=== PATIENT | female | born 1950 | race Caucasian/White ===

== ENCOUNTER 2025-04-18 07:23 | Inpatient (IN) | payer MEDICARE, OTHER, SELFPAY ==
[2025-04-18] VITALS (29 sets, daily range): BP systolic 114–167; BP diastolic 54–93; PULSE 37–51; BMI 27.7; BMI 26.1
--- NOTE | 2025-04-18 04:25 | ED.GENMED ---
History of Present Illness
<Rosamaria Mohamud PA-C - Last Filed: 04/18/25 08:00>
General
Chief Complaint: Chest Problem
Source: patient
Exam Limitations: none
Time Seen by Provider: 04/18/25 04:23
Nursing documentation reviewed up to this point in time: agreed with
History of Present Illness
History of Present Illness:
Note:
CHIEF COMPLAINT(S)
Abdominal pain and concerns related to colonoscopy preparation.
HISTORY OF PRESENT ILLNESS
The patient is a 74-year-old female with a prior history of afib on xarelto, htn, hiatal hernia and anxiety regarding health care expenses, presenting with abdominal pain and burning in the. She began her colonoscopy preparation the previous
evening, taking the prep at 6:00 p.m. to be completed by 8:00 p.m. After completion, she experienced pain severe enough to prevent sleep. The patient reported 'burping a bunch' during the prep and a burning sensation that improved with burping. She
also experienced watery stools. Alongside prep, she ingested Popsicles, which she later discontinued suspecting they contributed to discomfort, and Gatorade, which generally disagrees with her, switching then to water and apple juice. She was
advised by her primary care provider to take potassium supplementations which she has not taken. She denies any chest pain. She denies any shortness of breath. She has a history of coronary disease. Patient also generally feels weak. She
reports that she went to the bathroom.
CHRONIC MEDICAL CONDITIONS SIGNIFICANTLY AFFECTING CARE
Chronic conditions affecting care include a history of a hiatal hernia.
SOCIAL DETERMINANTS OF HEALTH
The patient reported financial stress related to healthcare costs.
PHYSICAL EXAM
- Nursing notes reviewed and vital signs reviewed.
General: Patient is well appearing and in no acute distress; non-toxic
Skin: Warm and dry, no rashes or lesions
Head: Normocephalic, atraumatic
Eyes: Sclera non-icteric. EOMs intact.
Cardiac: Bradycardia, heart rate irregularly irregular, no murmur
Peripheral Vascular: No lower extremity swelling or edema
Pulm: Normal respiratory effort, no wheezes, rales, rhonchi
Abdomen: Mild abdominal tenderness noted to palpation in the epigastrium
Neuro: CN II-XII intact, no focal neurologic deficits.
Psychiatric: Appropriate mood and affect.
EXTERNAL RECORDS REVIEWED
Patient�s recent lab results indicating potassium levels of 3.2 to 3.5 mEq/L.
PLAN
1. Obtain current blood work to assess potassium levels and other relevant metrics.
2. Administer an anti-spasmodic medication to alleviate abdominal pain.
3. If potassium is stable, continue as planned with colonoscopy preparation, otherwise manage hypokalemia accordingly.
4. Coordinate with GI services for follow-up and potentially expedited scope procedure due to persistent reflux history.
5. Advise the patient on dietary modifications and avoidance of irritants like Gatorade.
6. Instruct the patient to follow up with primary care for ongoing management and additional GI review if required.
DIFFERENTIAL DIAGNOSIS
The Differential Diagnosis includes, in no particular order and is not limited to:
- Gastritis
- Peptic Ulcer Disease
- Gastroesophageal Reflux Disease (GERD)
- Irritable Bowel Syndrome (IBS)
- Hiatal Hernia
- Electrolyte Imbalance (specifically hypokalemia)
- Inflammatory Bowel Disease
- Functional Dyspepsia
- Intestinal Obstruction
- Constipation Secondary to Bowel Prep
SUMMARY OF ENCOUNTER
The patient reports abdominal pain following colonoscopy prep, raising concerns due to existing cardiac and GI history. ECG findings suggest potential hypokalemia, prompting urgent lab reassessment.
EMERGENCY TREATMENTS ADMINISTERED
IV fluids, potassium, magnesium
CHART REVIEW
Prior ER physician documentation in [facility] to review
Reviewed prior cardiology notes that patient brought with her
QT noted to be prolonged in the past but not as prolonged as today
ECG
A-fib with rate of 56 with slow ventricular response, prolonged QT QTc 509 ms likely related to hypokalemia
MEDICAL DECISION MAKING
74-year-old female presents the ER today with concerns of generalized weakness and abdominal pain following performing colonoscopy prep. No chest pain or palpitations.
She was noted to be hypokalemic to 3.1 with ECG changes. Her potassium is going to be repleted. Hyponatremia noted to 123 however in light of GI loss, will hold off on 3% at this time will replete with IV fluids. ED attending made aware.
Troponin normal. Patient has no neurologic symptoms at this time. Discussed case with nephrology on-call Dr. Doss.
DIAGNOSIS
Hypokalemia, hyponatremia, generalized weakness
Phy Exam
<Rosamaria Mohamud PA-C - Last Filed: 04/18/25 08:00>
Physical Exam
Physical Exam:
see hpi
Course
<Rosamaria Mohamud PA-C - Last Filed: 04/18/25 08:00>
Orders/Labs/Results
Orders:
Orders
04/18/25 02:22
EKG [Electrocardiogram (*1)] Urgent
Reason for Study: Chest Pain
EKG- Treatment ONCE
04/18/25 05:00
Complete Blood Count/With Diff Urgent
Comprehensive Metabolic Panel Urgent
Magnesium Urgent
Serum Osmolality Urgent
Troponin I Urgent
04/18/25 05:44
Osmolality, Random Urine Urgent
Date Specimen was Collected: 04/18/25
Time Specimen was Collected: 05:43
Urine Sodium Urgent
Date Specimen was Collected: 04/18/25
Time Specimen was Collected: 05:43
Comment: ADD ON
04/18/25 05:48
Add On - Microbiology Urgent
Tests Added?: osmolality
04/18/25 06:15
Magnesium Oxide 400 mg PO NOW STA
Potassium Chloride [KCl] 40 meq 0.9% Sodium Chloride 250 ml [Nss] 250 ml IV NOW
04/18/25 06:28
Add On- LAB Urgent
Tests Added?: Urine sodium
04/18/25 06:30
Potassium Chloride [KCl] 40 meq 0.9% Sodium Chloride 250 ml [Nss] 250 ml IV NOW
04/18/25 06:31
Magnesium Sulfate 1 grams 0.9% Sodium Chloride 100 ml [Nss] 100 ml IV NOW
04/18/25 06:49
Admit/Transfer Patient As Directed
Co-Sign Provider:
Level of Care: Inpatient admission
Assign to:: Telemetry
Physician / Group: Pepe
Diagnosis: Hyponatremia, Hypokalemia, Diarrhea
Reason for Telemetry: Chest Pain syndromes
Date to Stop Telemetry: 04/20/25
Time to Stop Telemetry: 11:00
Reason for Hospitalization: Hyponatremia, Hypokalemia, Diarrhea
Expected length of stay greater than two midnights?: Yes
ELOS- Estimated Length of Stay in days: 2
I certify the patient meets the requirements for IP care: Yes
PRN Pain Medication Management As Directed
May give lesser potent ordered pain med per pt: Yes
preference::
Protocol:: Medication orders for pain may be administered in a
manner that supports deferring to patient preference
when the pt is:
- Requesting an ordered lesser potent pain medication.
Least to most potent pain medications are defined
as: acetaminophen < NSAID < tramadol < opioids
(morphine, oxycodone, hydromorphone).
- Requesting a lesser dose of the same medication IF
ORDERED.
- Requesting a less intrusive route of administration
if both routes are prescribed by the provider (PO <
IV).
04/18/25 06:50
Code Status As Directed
Resuscitation Status: Full Code
04/18/25 08:00
Pantoprazole [Protonix IV] 40 mg IV DAILY
04/20/25 11:00
DC Protocol for Telemetry ONCE
Abnormal Lab Results
04/18/25
05:00
WBC 12.9 H 10^3/uL
(4.8-10.8)
MCH 31.2 H pg
(27.0-31.0)
MCHC 37.4 H g/dL
(33.0-37.0)
Absolute Neuts (auto) 10.1 H 10^3/uL
(1.4-6.5)
Absolute Monos (auto) 0.8 H 10^3/uL
(0.1-0.6)
Neutrophils % 78.5 H %
(42.2-75.2)
Lymphocytes % 13.7 L %
(20.5-51.1)
Sodium 123 L mmol/L
(135-145)
Potassium 3.1 L mmol/L
(3.5-5.1)
Chloride 85 L mmol/L
(98-107)
Glucose 128 H mg/dl
(70-99)
Magnesium 1.5 L mg/dl
(1.6-2.3)
Total Bilirubin 1.6 H mg/dl
(0.2-1.3)
AST 37 H U/L
(14-36)
Albumin 5.1 H g/dl
(3.5-5.0)
04/18/25 05:00
04/18/25 05:00
Vital Signs
Initial and Last Documented VS:
Initial Vital Signs
Temp Pulse Resp BP Pulse Ox
97.5 F 61 18 139/74 100
04/18/25 02:31 04/18/25 02:31 04/18/25 02:31 04/18/25 02:31 04/18/25 02:31
Last Documented Vital Signs
Temp Pulse Resp BP Pulse Ox
97.5 F 51 14 138/65 98
04/18/25 07:23 04/18/25 07:15 04/18/25 07:15 04/18/25 07:14 04/18/25 07:15
<Tabby Payton, DO - Last Filed: 04/18/25 07:41>
Orders/Labs/Results
Orders:
Orders
04/18/25 02:22
EKG [Electrocardiogram (*1)] Urgent
Reason for Study: Chest Pain
EKG- Treatment ONCE
04/18/25 05:00
Complete Blood Count/With Diff Urgent
Comprehensive Metabolic Panel Urgent
Magnesium Urgent
Serum Osmolality Urgent
Troponin I Urgent
04/18/25 05:44
Osmolality, Random Urine Urgent
Date Specimen was Collected: 04/18/25
Time Specimen was Collected: 05:43
Urine Sodium Urgent
Date Specimen was Collected: 04/18/25
Time Specimen was Collected: 05:43
Comment: ADD ON
04/18/25 05:48
Add On - Microbiology Urgent
Tests Added?: osmolality
04/18/25 06:15
Magnesium Oxide 400 mg PO NOW STA
Potassium Chloride [KCl] 40 meq 0.9% Sodium Chloride 250 ml [Nss] 250 ml IV NOW
04/18/25 06:28
Add On- LAB Urgent
Tests Added?: Urine sodium
04/18/25 06:30
Potassium Chloride [KCl] 40 meq 0.9% Sodium Chloride 250 ml [Nss] 250 ml IV NOW
04/18/25 06:31
Magnesium Sulfate 1 grams 0.9% Sodium Chloride 100 ml [Nss] 100 ml IV NOW
04/18/25 06:49
Admit/Transfer Patient As Directed
Co-Sign Provider:
Level of Care: Inpatient admission
Assign to:: Telemetry
Physician / Group: Pepe
Diagnosis: Hyponatremia, Hypokalemia, Diarrhea
Reason for Telemetry: Chest Pain syndromes
Date to Stop Telemetry: 04/20/25
Time to Stop Telemetry: 11:00
Reason for Hospitalization: Hyponatremia, Hypokalemia, Diarrhea
Expected length of stay greater than two midnights?: Yes
ELOS- Estimated Length of Stay in days: 2
I certify the patient meets the requirements for IP care: Yes
PRN Pain Medication Management As Directed
May give lesser potent ordered pain med per pt: Yes
preference::
Protocol:: Medication orders for pain may be administered in a
manner that supports deferring to patient preference
when the pt is:
- Requesting an ordered lesser potent pain medication.
Least to most potent pain medications are defined
as: acetaminophen < NSAID < tramadol < opioids
(morphine, oxycodone, hydromorphone).
- Requesting a lesser dose of the same medication IF
ORDERED.
- Requesting a less intrusive route of administration
if both routes are prescribed by the provider (PO <
IV).
04/18/25 06:50
Code Status As Directed
Resuscitation Status: Full Code
04/18/25 08:00
Pantoprazole [Protonix IV] 40 mg IV DAILY
04/20/25 11:00
DC Protocol for Telemetry ONCE
Abnormal Lab Results
04/18/25
05:00
WBC 12.9 H 10^3/uL
(4.8-10.8)
MCH 31.2 H pg
(27.0-31.0)
MCHC 37.4 H g/dL
(33.0-37.0)
Absolute Neuts (auto) 10.1 H 10^3/uL
(1.4-6.5)
Absolute Monos (auto) 0.8 H 10^3/uL
(0.1-0.6)
Neutrophils % 78.5 H %
(42.2-75.2)
Lymphocytes % 13.7 L %
(20.5-51.1)
Sodium 123 L mmol/L
(135-145)
Potassium 3.1 L mmol/L
(3.5-5.1)
Chloride 85 L mmol/L
(98-107)
Glucose 128 H mg/dl
(70-99)
Magnesium 1.5 L mg/dl
(1.6-2.3)
Total Bilirubin 1.6 H mg/dl
(0.2-1.3)
AST 37 H U/L
(14-36)
Albumin 5.1 H g/dl
(3.5-5.0)
04/18/25 05:00
04/18/25 05:00
Vital Signs
Initial and Last Documented VS:
Initial Vital Signs
Temp Pulse Resp BP Pulse Ox
97.5 F 61 18 139/74 100
04/18/25 02:31 04/18/25 02:31 04/18/25 02:31 04/18/25 02:31 04/18/25 02:31
Last Documented Vital Signs
Temp Pulse Resp BP Pulse Ox
97.5 F 51 14 138/65 98
04/18/25 07:23 04/18/25 07:15 04/18/25 07:15 04/18/25 07:14 04/18/25 07:15
<Rosamaria Mohamud PA-C - Last Filed: 04/18/25 08:00>
*Pulse Oximetry
SaO2: 98
Oxygen Mode of Delivery: Room air
Patient hypoxic: no
*Critical Care Note
Total Time (30-74mins, 75-104mins- exclusive of procedures): Not Applicable
ED Attending Note
<Rosamaria Mohamud PA-C - Last Filed: 04/18/25 08:00>
-
Portions of this chart may have been created with voice recognition software.� Occasional wrong word or��sound alike� substitutions may have occurred due to the inherent limitations of voice recognition software.
<Tabby Payton DO - Last Filed: 04/18/25 07:41>
ED Attending Note
Patient seen and examined by attending physician: Yes
I performed a history and physical exam of patient and discussed management with resident, I reviewed resident's note and agree with documented findings and plan of care.: Yes
ED Attending Note:
74-year-old woman with history of permanent A-fib chronically maintained on Xarelto, hypertension, hiatal hernia presents tonight with left upper quadrant abdominal pain. Currently prepping for colonoscopy tomorrow. She has been passing multiple
loose stools.
She is also had intermittent nausea, dry heaves.
Exam notable for mild left upper quadrant tenderness to palpation.
Labs are notable for moderate hyponatremia of 123. Mild hypokalemia at 3.1 and mild hypomagnesemia of 1.5.
EKG shows A-fib with slow ventricular response of 56. Long QT interval.
Significant hyponatremia, hypokalemia and hypomagnesemia likely related to colonoscopy prep and ensuing diarrhea.
At this point would not recommend continuing with colonoscopy prep as electrolyte abnormalities could certainly worsen with potential for catastrophic arrhythmia.
Recommend initiation of IV normal saline and will admit to hospital service for continued observation and repeat electrolyte analysis.
Case discussed with nephrology. Would not recommend hypertonic saline at this point as hyponatremia likely related to acute volume loss due to diarrhea.
Discharge Plan
Departure
Patient Disposition: Admit
Date of Disposition: 04/18/25
Time of Disposition: 06:17
Admit to: Med/Surg
Presentation/result/management discussed w/ accepting MD/DO: Hospitalist
Condition: Fair
Discharge Problem:
Hyponatremia, Hypokalemia, Abdominal pain
Interventions
Interventions:
*Risk Screen - Suicide Last Done: 04/18/25 02:31
*General Assessment Last Done: 04/18/25 03:09
*Neglect/Abuse Screening Last Done: 04/18/25 03:09
*ED COVID-19 Vaccine History Last Done: 04/18/25 03:09
*ED Influenza Vaccine History Last Done: 04/18/25 03:09
[facility] Fall Risk Assessment Tool Last Done: 04/18/25 03:07
ED- Cardiac Assessment Last Done: 04/18/25 03:07
ED- Pulmonary Assessment Last Done: 04/18/25 03:08
[2025-04-18 05:06] LABS: Hematocrit 39.6 % (37.0-47.0); Hemoglobin 14.8 g/dL (12.0-16.0); Mean Corp Hgb Conc. 37.4 g/dL (33.0-37.0); Mean Corpuscular Volume 83.5 fL (81.0-99.0); Nucleated Red Blood Cells % 0 %; Platelet Count 259 10^3/uL (130-400); Red Cell Dist. Width 13.0 % (11.5-14.5)
[2025-04-18 05:38] LABS: ALT (SGPT) 27 U/L (0-35); AST (SGOT) 37 U/L (14-36); Albumin 5.1 g/dl (3.5-5.0); Alkaline Phosphatase 61 U/L (38-126); Blood Urea Nitrogen 8 mg/dl (7-17); Calcium 10.1 mg/dl (8.4-10.2); Carbon Dioxide 29 mmol/L (22-30); Chloride 85 mmol/L (98-107); Estimated Creatinine Clearance 72 ml/min; Glucose 128 mg/dl (70-99); Magnesium 1.5 mg/dl (1.6-2.3); Potassium 3.1 mmol/L (3.5-5.1); Sodium 123 mmol/L (135-145); Total Protein 7.9 g/dl (6.3-8.2); eGFR > 60.00
[2025-04-18 05:51] LABS: Troponin I 0.019 ng/ml
--- NOTE | 2025-04-18 06:56 | HPS.HSE ---
Family Physician
-
Family Physician: Dena Peoples
Chief Complaint
-
Abd Pain, Nausea, Diarrhea
History of Present Illness
Patient is a 74y F with PMH significant for hypertension and hiatal hernia who presents to ED complaining of abdominal pain, nausea and diarrhea. Patient notes that she was completing a bowel prep yesterday for a planned colonoscopy today with
Dr. Ariana Ashton in [place]. She developed LUQ discomfort in the evening. This persisted through the night. She did of course have multiple loose and liquid stools as a result of the bowel prep. She felt nauseated but denies any emesis.
She began to feel lightheaded and 'shaky' and presented to the ED for further evaluation.
In the ED patient continues to feel nauseated and 'shaky'. She has persistent LUQ / epigastric abdominal discomfort.
Medical History
Past Medical History
Past Medical History: Reports Other
Additional Past Medical History:
Hypertension
Hiatal Hernia / GERD
Esophageal Stricture / Food Impactions
Atrial Fibrillation
Past Surgical History: Reports Other
Additional Past Surgical History:
x 1
Social History
Tobacco: Non-smoker
Alcohol: None
Drug: None
Family History
Family History: Not pertinent
Allergies / Home Medications
Allergies reflects when Allergies were last updated in [employer].
Home Medications with original date entered in [employer]
Allergy/Medication List:
Allergies
Allergy/AdvReac Type Severity Reaction Status Date / Time
adhesive tape Allergy Unknown Verified 04/18/25 02:31
Home Medications
amlodipine 5 mg tablet 5 mg PO DAILY 04/18/25
chlorthalidone 25 mg tablet 25 mg PO DAILY 04/18/25
potassium chloride 10 mEq tablet,extended release 10 meq PO DAILY 04/18/25
rivaroxaban 20 mg tablet (Xarelto) 20 mg PO DAILY 04/18/25
rosuvastatin 5 mg tablet 5 mg PO HS 04/18/25
Review of Systems
-
History Source: Patient
A 12 point ROS was completed and negative except as noted: Yes
Constitutional: Reports Fatigue; Denies Fever or Chills
EENT: Denies Sore Throat
Respiratory: Denies Cough or Trouble Breathing
Cardiac: Denies Chest Pain or Palpitations
Abdomen/GI: Reports Abdominal Pain, Nausea and Diarrhea; Denies Vomiting, Bloody Stools or Black Stools
: Denies Dysuria or Frequency
Musculoskeletal: Denies Edema
Neurological: Reports Dizzy; Denies Headache
Psych: Reports Anxiety; Denies Depression
Physical Exam
Vital Signs
Vital Signs
Temp Pulse Resp BP Pulse Ox
97.5 F 57 17 150/65 100
04/18/25 02:31 04/18/25 06:00 04/18/25 06:00 04/18/25 06:00 04/18/25 06:00
Physical Exam
General: Other (74y F in mild distress due to nausea / pain.)
HEENT: Other (Dry MM. Neck supple.)
Respiratory: Clear; No Wheezes, Rales or Rhonchi
Cardiac: S1/S2, Irregular Rhythm and Bradycardia; No Murmur
GI: Other (Mild epigastric tenderness. Pos BS. )
Musculoskeletal: No Clubbing, No Cyanosis and No Edema
Neuro: AO x 3
Laboratory Results
-
04/18/25 05:00
04/18/25 05:00
Laboratory Results
Total Bilirubin 1.6 mg/dl (0.2-1.3) H 04/18/25 05:00
AST 37 U/L (14-36) H 04/18/25 05:00
ALT 27 U/L (0-35) 04/18/25 05:00
Alkaline Phosphatase 61 U/L (38-126) 04/18/25 05:00
Troponin I 0.019 ng/ml 04/18/25 05:00
Impression/Plan
-
A/P: Patient is a 74y F with PMH significant for hiatal hernia, GERD and A-Fib who presents to ED complaining of abdominal pain, nausea and diarrhea.
Hyponatremia
Hypokalemia
Nausea / Diarrhea
Prolonged QT
- Admit for further evaluation and treatment.
- Suspect diarrhea and electrolyte abnormalities are due to bowel prep / diarrhea + chlorthalidone, etc.
- Patient states that she was directed to take oral potassium as well - but she stopped this last week for unclear reasons.
- IV Magnesium and potassium given in the ED.
- IVF support.
- Repeat BMP at noon. Follow labs / lytes and adjust IVFs as needed.
- Follow for clinical improvement.
- Supportive care with antiemetics - Tigan for now given long QT.
- Monitor on telemetry.
Hiatal Hernia / GERD
LUQ Discomfort
- IV PPI daily.
- Hold on further bowel prep for now.
- Patient states that she was scheduled today for EGD with dilation in addition to her colonoscopy.
- Cancelled due to hospitalization - follow-up with GI as an outpatient.
Atrial Fibrillation - Unknown Type
Bradycardia
- Slow heart rates on now chronotropic meds - likely vagal effect due to abdominal symptoms / nausea / etc.
- Monitor on telemetry as noted above.
- Will continue to hold Xarelto for now (held for colonoscopy) - but resume prior to discharge / once tolerating diet.
Benign Hypertension
- Continue amlodipine with holding parameters.
- Would hold / stop chlorthalidone given electrolyte abnormalities.
DVT Prophylaxis: SCDs
Code Status: Full
[2025-04-18] MEDS: KCL 270 MEQ IV (07:17)
[2025-04-18] MEDS: MAGNESIUM SULFATE 102 GRAMS IV ×2 (08:19→18:17)
[2025-04-18] MEDS: REGLAN 5 MG IV (08:20)
[2025-04-18] MEDS: PROTONIX IV 40 MG IV (08:20)
[2025-04-18] MEDS: NSS (PRESERVATIVE FREE) 10 ML IV (08:21)
[2025-04-18] MEDS: NSS 1000 IV ×2 (09:34→21:23)
[2025-04-18 10:38] LABS: Troponin I 0.015 ng/ml
--- NOTE | 2025-04-18 11:22 | EDCM ---
Reviewed chart and met with pt and her sister bedside in ED. Lives alone, 2 story [facility], no SHELLI, first floor half bath, full flight to second floor bedroom and full bath.
Independent in ADLs, personal care and ambulation at baseline. No assistive devices, no DME in home.
Confirms Rx coverage.
No hx VN or SNF
PCP: Dena Peoples
Pharmacy: [facility]
Anticipate discharge home, CM will continue to follow for all discharge planning needs.
--- NOTE | 2025-04-18 12:44 | W.PN.UPDATE ---
Update Note
Progress Note Update
Nonbillable note. Admitted past midnight
General: no acute distress
HEENT: Other (Dry MM)
Respiratory: Clear; No Wheezes, Rales or Rhonchi
Cardiac: S1/S2, Irregular Rhythm and Bradycardia
GI: Other (Mild epigastric tenderness. Pos BS. )
Musculoskeletal: No Edema
Neuro: AO x 3
Hyponatremia, Hypokalemia, Nausea / Diarrhea likely secondary to bowel prep for colonoscopy
Replete electrolytes aggressively and recheck BMP later today
Prolonged QT
- Suspect diarrhea and electrolyte abnormalities are due to bowel prep / diarrhea + chlorthalidone, etc.
- Patient states that she was directed to take oral potassium as well - but she stopped this last week for unclear reasons.
- IVF support.
- Repeat BMP at noon
- Follow for clinical improvement.
- Supportive care with antiemetics - Tigan for now given long QT.
- Monitor on telemetry
Atrial fibrillation, unknown type
Now with bradycardia which could be secondary to electrolyte disturbances
Consult cardiology
Not on beta-alana
TSH pending
Xarelto was on hold currently in case need any intervention
Hiatal Hernia / GERD
History of Schatzki ring
- IV PPI
- Hold on further bowel prep for now.
Per patient she was scheduled for EGD in addition to colonoscopy 04/18 outpatient. Will see how patient does with p.o. intake and if there is any issue then we will get GI for EGD at least while in the hospital.
- Cancelled due to hospitalization - follow-up with GI as an outpatient.
Benign Hypertension
- Continue amlodipine with holding parameters.
- Would hold / stop chlorthalidone given electrolyte abnormalities.
DVT Prophylaxis: SCDs
Code Status: Full
[2025-04-18] MEDS: NORVASC 5 MG PO (12:46)
[2025-04-18 13:28] LABS: Blood Urea Nitrogen 4 mg/dl (7-17); Calcium 9.5 mg/dl (8.4-10.2); Carbon Dioxide 24 mmol/L (22-30); Chloride 92 mmol/L (98-107); Estimated Creatinine Clearance 72 ml/min; Glucose 114 mg/dl (70-99); Magnesium 1.9 mg/dl (1.6-2.3); Potassium 4.0 mmol/L (3.5-5.1); Sodium 123 mmol/L (135-145); eGFR > 60.00
--- NOTE | 2025-04-18 14:43 | CON.CAR ---
Addendum entered and electronically signed by Ariela Cook MD 04/18/25 16:46:
I saw and evaluated the patient, and I provided the substantive portion of the medical decision making.
I reviewed and agree with the note by NIDA Jaquez and it accurately reflects our care.
I personally performed the medical decision making of the this encounter and my assessment and plan is below:
74-year-old female who follows with Dr. Lin with a history of permanent atrial fibrillation on Xarelto with slow ventricular response, hypertension, hiatal hernia, Schatzki's rings, and dyslipidemia presented as she felt poorly while doing a
colonoscopy prep for a proposed EGD and colonoscopy today that was never completed.. We were called because she was noted to have a heart rate in the 30s at times. She had some upper epigastric pain, feeling bloated and shaky. Of note, initial
labs show significant hyponatremia to 123 and hypokalemia. She had some vomiting on arrival. Currently she still feels a bit off but no chest pain. She has epigastric fullness. Of note, she reports at home she is able to get up and exercise
without issues.
On exam, she has an irregularly irregular rate and rhythm with a normal S1-S2 no murmur rubs gallops were appreciated lungs were clear to auscultation bilaterally abdomen was soft, extremities were warm and well-perfused.
EKG shows atrial fibrillation at a rate of 56 bpm with incomplete right bundle branch block and QTc of 509 ms
Telemetry does not show any prolonged pauses, heart rates in the 30s to 60s while in atrial fibrillation. No evidence of advanced heart block.
Assessment:
Hyponatremia and hypokalemia in the setting of bowel prep, diarrhea, nausea vomiting
Atrial fibrillation with slow ventricular response: Slower response noted in the setting of electrolyte abnormalities and increased vagal tone.
Prolonged QT
Hiatal hernia/Schatzki's ring
Plan:
No clear irreversible bradycardia, currently no indication for pacemaker. Baseline heart rate has been in the 40s to 50s.
Correction of hyponatremia and hypokalemia. Improvement of abdominal symptoms should help.
Keeping K and mag replete will help with QTc C. Avoid further QT prolonging agents.
Will update echo in case indication for pacemaker becomes clear.
Would keep n.p.o. after midnight as we monitor on telemetry in the instance that we should see an indication for pacemaker in the morning.
Family at the bedside. Plan discussed with them.
Will follow.
Original Note:
Consultation
Consultation Request
Date/Time Consultation Requested: 04/18/25 1204
Date/Time Consultation Performed: 04/18/25 1445
Requesting Provider: Dr. Begum
Performing Provider: Chante ALVA for Dr. Cook
Reason for Consultation: bradycardia
Medical History
-
Chief Complaint: abdominal pain
History of Present Illness:
74 y/o female (Patient of Dr. Lin) with hypertension, permanent AFIB on Xarelto, GERD, hiatal hernia, Schatzki ring, and dyslipidemia who was doing a colonoscopy prep. She reports she 'just didn't feel right' and wasn't herself. She recalls
feeling shaky. Abdomen felt bloated and like there was a knot. She vomited as well. She is feeling somewhat improved overall. HR is 30's-50's in AFIB. Significant hyponatremia is noted. Hypokalemia also noted and has been replaced Of note, she had
her cardiology records on her and it looks like her HR was reported in 40's-50's in OP office off AV debby agents. QTC prolonged on EKG, but improved with potassium replacement. She is in no distress at the time of my assessment. Sister in law,
Becky, at bedside.
Past Medical History
Past Medical History: Arrhythmias, HTN and Hypercholesterolemia
Social History
Tobacco: Non-Smoker
Family History
Family History: Reviewed & Not Pertinent
Allergies / Home Medications
Allergy/AdvReac Type Severity Reaction Status Date / Time
adhesive tape Allergy Unknown Verified 04/18/25 02:31
�Medication �Instructions �Recorded �Confirmed �Type
amlodipine 5 mg tablet 5 mg PO DAILY Blood Pressure 04/18/25 04/18/25 History
chlorthalidone 25 mg tablet 25 mg PO DAILY Blood Pressure 04/18/25 04/18/25 History
potassium chloride 10 mEq oral 10 meq PO DAILY Supplement 04/18/25 04/18/25 History
packet
rivaroxaban 20 mg tablet (Xarelto) 20 mg PO QPM Blood Clot 04/18/25 04/18/25 History
Prevention/Tx
rosuvastatin 5 mg tablet 5 mg PO HS High Cholesterol 04/18/25 04/18/25 History
Review of Systems
-
History Source: Patient
All other systems: Negative unless noted (as noted in HPI)
Constitutional: Other (shaky)
Abdomen/GI: Abdominal Pain, Nausea and Vomiting
Physical Exam
Vital Signs
Temp Pulse Resp BP Pulse Ox
97.5 F 46 16 142/65 100
04/18/25 14:00 04/18/25 14:00 04/18/25 14:00 04/18/25 14:00 04/18/25 14:00
Lab Results
04/18/25 05:00
Troponin I 0.015 ng/ml 04/18/25 10:00
Physical Exam
General: Well Developed, Well Nourished and No Apparent Distress
HEENT: Normocephalic and Anicteric
Respiratory: Clear and Non Labored Respirations
Cardiac: Irregular Rhythm
Skin: Warm and Dry
Neuro: AO x 3
Psych: Calm
Impression / Plan
-
Hyponatremia:
-management per primary team
Hypokalemia:
-being replaced; monitor
-diuretic held
Bradycardia:
-AFIB with IC RBBB on EKG, HR 30's-50's on monitor- unclear if symptomatic since other issues as noted; follow telemetry. Assess as other issues are addressed (electrolytes, abdominal issues).
-not on AV debby agents
-TSH WNL
-looks to be chronic from OP chart
-will keep NPO for AM while we monitor telemetry
Prolonged QTC:
-improved with K+ replacement, repeat in AM
Permanent AFIB:
-on Xarelto as OP
-not on AV debby agents as noted
HTN:
-stable
-monitor on CCB
HLD: statin
Data Reviewed
-
EKG: Tracing Personally Visualized and interpreted (AFIB 44 BPM, IC RBBB)
Medical Tests (Nuc Med, Echo etc): Report Reviewed by me (Echo 09/06/24: EF 65%, mild MR, moderate TR, PAP 47 MmmHG)
Labs: Labs Reviewed by me
Old Records: Reviewed (Dr. Lin 03/2025)
[2025-04-18] MEDS: KCL 20 MEQ PO (14:50)
[2025-04-18 16:25] LABS: Troponin I 0.014 ng/ml
[2025-04-18 20:47] LABS: Sodium 127 mmol/L (135-145)
[2025-04-18] MEDS: CRESTOR 5 MG PO (21:24)
[2025-04-18 22:26] LABS: Troponin I < 0.012 ng/ml
[2025-04-19] VITALS (7 sets, daily range): BP systolic 99–170; BP diastolic 51–83; PULSE 47–71; BMI 26.2
--- NOTE | 2025-04-19 00:10 | W.PN.UPDATE ---
Update Note
Progress Note Update
HR 20's-30's for brief seconds Afib
patient asymptomatic
will order labs
other HR 40's-[address] 1[address] oxygen[address]
If bradycardia sustains will give atropine.
NPO for possible pacemaker
Lab results noted
NA 132 will stop the fluids
Patient asymptomatic
[2025-04-19 00:43] LABS: Blood Urea Nitrogen 4 mg/dl (7-17); Calcium 9.2 mg/dl (8.4-10.2); Carbon Dioxide 27 mmol/L (22-30); Chloride 102 mmol/L (98-107); Estimated Creatinine Clearance 61 ml/min; Glucose 94 mg/dl (70-99); Magnesium 2.2 mg/dl (1.6-2.3); Potassium 4.0 mmol/L (3.5-5.1); Sodium 132 mmol/L (135-145); eGFR > 60.00
--- NOTE | 2025-04-19 02:22 | PTCARENOTE ---
Patient HR in the 20s and 30s with 3.4 sec pauses. Vitals stable. Patient asymptomatic. ENVIRONMENTAL RESEARCH SCIENTIST notified. STAT labs ordered and drawn. Labs improved from prior draw. 02 ordered and placed on patient. Continue to monitor. Patient for Echo and possible
pacemaker in am.
[2025-04-19] MEDS: KCL 20 MEQ PO (07:52)
[2025-04-19] MEDS: NORVASC 5 MG PO (07:52)
[2025-04-19] MEDS: NSS (PRESERVATIVE FREE) 10 ML IV (07:53)
[2025-04-19] MEDS: PROTONIX IV 40 MG IV (07:53)
[2025-04-19 08:23] LABS: Hematocrit 38.4 % (37.0-47.0); Hemoglobin 13.9 g/dL (12.0-16.0); Mean Corp Hgb Conc. 36.2 g/dL (33.0-37.0); Mean Corpuscular Volume 89.3 fL (81.0-99.0); Platelet Count 242 10^3/uL (130-400); Red Cell Dist. Width 13.4 % (11.5-14.5)
[2025-04-19 08:49] LABS: Blood Urea Nitrogen 5 mg/dl (7-17); Calcium 9.8 mg/dl (8.4-10.2); Carbon Dioxide 27 mmol/L (22-30); Chloride 104 mmol/L (98-107); Estimated Creatinine Clearance 47 ml/min; Glucose 101 mg/dl (70-99); Potassium 3.8 mmol/L (3.5-5.1); Sodium 137 mmol/L (135-145); eGFR > 60.00
--- NOTE | 2025-04-19 09:35 | W.PN.CD ---
Today's Communication / Plan
-
- Outpatient follow-up with cardiology.
- Echo pending today.
Impression / Plan
-
Hyponatremia:
-management per primary team
Hypokalemia:
-being replaced; monitor
-diuretic held
Bradycardia:
-AFIB with IC RBBB on EKG, HR 30's-50's on monitor- unclear if symptomatic since other issues as noted; follow telemetry. Assess as other issues are addressed (electrolytes, abdominal issues).
-not on AV debby agents
-TSH WNL
- Asymptomatic bradycardia.
- Tolerating lower heart rates without any significant symptoms or hemodynamic compromise for
- Avoid any negative chronotropic agents.
- Plan outpatient observation.
- If patient developed symptoms of bradycardia, he may be candidate for pacemaker.
Prolonged QTC:
-improved with K+ replacement
Permanent AFIB:
-on Xarelto as OP
-not on AV debby agents as noted
HTN:
-stable
-monitor on CCB
HLD: statin
Physical Exam
Vital Signs/Labs
Vital Signs
Temp Pulse Resp BP Pulse Ox
97.8 F 57 18 127/56 98
04/19/25 07:00 04/19/25 07:00 04/19/25 07:00 04/19/25 07:00 04/19/25 07:00
04/18/25 04/19/25 04/20/25
06:59 06:59 06:59
Actual Weight 66.5 kg 62.794 kg
04/19/25 07:59
04/19/25 07:59
Magnesium 2.2 mg/dl (1.6-2.3) 04/19/25 00:07
LAB Results
04/18/25 04/18/25 04/18/25
05:00 10:00 15:46
Troponin I 0.019 0.015 0.014
04/18/25
21:52
Troponin I < 0.012
Physical Exam
Constitutional: No acute distress and Comfortable
EENT: Anicteric and Moist mucous membranes
Cardiovascular: Rhythm & rate is regular, Pedal edema is absent and JVD pressure is normal
Respiratory: Respiratory effort normal, Lungs clear to auscul. and Wheeze Absent
GI: Soft, Distention absent, Normal bowel sounds and Distention present
Neuro/Psych: Alert, Oriented and AO x 3
Data Reviewed
-
Date of Service: April 19, 2025
Medical Decision Making: Reviewed Test Results, Test Interpretation and Review of Case with other Provider
EKG: Tracing Personally Visualized and interpreted
Labs: Labs Reviewed by me
Old Records: Reviewed
--- NOTE | 2025-04-19 13:14 | W.PN.HOSP.TC ---
Today's Communication/Plan
-
monitor vital signs
see plan
Discussed with cardiology Dr. Jimenez. No plan for pacemaker at this time
Ordered IDDS 6 diet due to patient complaining of intermittent dysphagia. Speech evaluation
might need GI eval inpatient
Assessment / Plan
Assessment / Plan
General: no acute distress
HEENT: Other (Dry MM)
Respiratory: Clear; No Wheezes, Rales or Rhonchi
Cardiac: S1/S2, Irregular Rhythm and Bradycardia
GI: Other (Mild epigastric tenderness. Pos BS. )
Musculoskeletal: No Edema
Neuro: AO x 3
Acute Hyponatremia, Hypokalemia, Nausea / Diarrhea likely secondary to bowel prep for colonoscopy
Replete electrolytes aggressively
Prolonged QT
- Suspect diarrhea and electrolyte abnormalities are due to bowel prep / diarrhea + chlorthalidone, etc.
- Patient states that she was directed to take oral potassium as well - but she stopped this last week for unclear reasons.
dc further IVF
- Follow for clinical improvement.
- Monitor on telemetry
Atrial fibrillation, unknown type
Now with bradycardia which could be secondary to electrolyte disturbances and vagal response
overnight with bradycardia with pause
Cardiology following, evaluated by Dr. Jimenez from EP and no plan for pacemaker at this time
Not on beta-alana
TSH wnl
Xarelto was on hold currently in case need any intervention
Hiatal Hernia / GERD
History of Schatzki ring
- IV PPI
- Hold on further bowel prep for now.
Per patient she was scheduled for EGD in addition to colonoscopy 04/18 outpatient. Will see how patient does with p.o. intake and if there is any issue then we will get GI for EGD at least while in the hospital.
- Cancelled due to hospitalization - follow-up with GI as an outpatient.
Benign Hypertension
- Continue amlodipine with holding parameters.
- Would hold / stop chlorthalidone given electrolyte abnormalities.
DVT Prophylaxis: SCDs
Code Status: Full
Anticipated Discharge: Within 24 hours
Subjective/Interval History
-
Date of Service: April 19, 2025
Denies pain
Objective Data
-
Labs:
Laboratory Results
04/19/25
07:59
WBC 7.7
Hgb 13.9
Hct 38.4
Plt Count 242
Sodium 137
Potassium 3.8
Chloride 104
Carbon Dioxide 27
BUN 5 L
Creatinine 0.9
Glucose 101 H
Calcium 9.8
Vital Signs:
Vital Signs
Temp Pulse Resp BP Pulse Ox
98.1 F 47 16 125/83 98
04/19/25 11:27 04/19/25 12:54 04/19/25 11:27 04/19/25 11:27 04/19/25 11:27
I&O
04/18/25 04/19/25 04/20/25
06:59 06:59 06:59
Intake Total 880 / 880
Balance 880 / 880
--- NOTE | 2025-04-19 14:34 | W.PN.UPDATE ---
Update Note
Progress Note Update
Patient's echo is done earlier today.
Transthoracic echo 04/19/2025 shows
1. Normal biventricular size and systolic function without regional wall motion abnormality.
2. No significant valve disease seen.
3. Incidental finding of PFO versus secundum ASD with hamo-lj-cmvso shunt seen.
With no significant structural heart disease, patient's A-fib and bradycardia can be monitored as an outpatient. Without any symptoms, we will continue to monitor.
Patient is stable to be discharged from cardiac standpoint
--- NOTE | 2025-04-19 15:38 | PTOTSP ---
Dysphagia Evaluation:
Pt presents w/ chronic (hiatal hernia, GERD, esophageal stricture, food impactations, Schatzki's ring) risk factors for aspiration/dysphagia. However, no overt s/sx observed during bedside swallow evaluation, no hx of dysphagia/PNAs, pt is on room
air, and WBC 7.7. Education provided re: reflux precautions, diet recommendations. It is recommended that pt is placed on Regulars, Thins diet while selecting foods and consistencies that are manageable and implementing reflux precautions if
medically cleared per gastroenterology.
Recommendations:
1. Regulars, Thins w/ pt selecting manageable consistencies independently
2. Medications as best tolerated
3. Strategies: Slow rate, small bites, reflux precautions
4. ST to sign off. Reconsult if change in diet level tolerance or pt presentation.
[2025-04-19] MEDS: CRESTOR 5 MG PO (20:16)
[2025-04-19] MEDS: XARELTO 20 MG PO (21:06)
[2025-04-20] VITALS (11 sets, daily range): BP systolic 127–167; BP diastolic 53–83; BMI 25.8
[2025-04-20] MEDS: PROTONIX IV 40 MG IV ×2 (08:11→08:13)
[2025-04-20] MEDS: KCL 20 MEQ PO (08:12)
[2025-04-20] MEDS: NORVASC 5 MG PO (08:13)
[2025-04-20] MEDS: NSS (PRESERVATIVE FREE) 10 ML IV (08:13)
[2025-04-20 08:45] LABS: Hematocrit 39.0 % (37.0-47.0); Hemoglobin 13.6 g/dL (12.0-16.0); Mean Corp Hgb Conc. 34.9 g/dL (33.0-37.0); Mean Corpuscular Volume 89.2 fL (81.0-99.0); Nucleated Red Blood Cells % 0 %; Platelet Count 230 10^3/uL (130-400); Red Cell Dist. Width 13.6 % (11.5-14.5)
[2025-04-20 09:40] LABS: Blood Urea Nitrogen 12 mg/dl (7-17); Calcium 9.7 mg/dl (8.4-10.2); Carbon Dioxide 31 mmol/L (22-30); Chloride 100 mmol/L (98-107); Estimated Creatinine Clearance 41 ml/min; Glucose 86 mg/dl (70-99); Potassium 3.8 mmol/L (3.5-5.1); Sodium 135 mmol/L (135-145); eGFR > 60.00
--- NOTE | 2025-04-20 11:33 | PTCARENOTE ---
Patient with bradycardia this am, with pause. Denied any symptoms this am, but did state to hospitalist that she felt dizzy and had some GI upset - nonspecific . Cardiology spoke with patient , requested a transfer for IVU and spoke to her about
a possible pacer for Tuesday. Report called to IVU and pt transferring at present .
--- NOTE | 2025-04-20 13:18 | W.PN.HOSP.TC ---
Today's Communication/Plan
-
Monitor vital signs and see plan
Discussed with Dr. Jimenez; plan for pacemaker Tuesday
Monitor in IVU
Assessment / Plan
Assessment / Plan
General: no acute distress
HEENT: Anicteric, pink conjunctivae
Respiratory: Clear; No Wheezes, Rales or Rhonchi
Cardiac: S1/S2, Irregular Rhythm and Bradycardia
GI: No tenderness
Musculoskeletal: No Edema
Neuro: AO x 3
Acute Hyponatremia, Hypokalemia, Nausea / Diarrhea likely secondary to bowel prep for colonoscopy
Replete electrolytes aggressively, now improved
Prolonged QT
- Suspect diarrhea and electrolyte abnormalities are due to bowel prep / diarrhea + chlorthalidone, etc.
- Patient states that she was directed to take oral potassium as well - but she stopped this last week for unclear reasons.
dc further IVF
Electrolytes not improved
- Monitor on telemetry
Atrial fibrillation, unknown type
Now with bradycardia which could be secondary to electrolyte disturbances and vagal response
overnight with bradycardia with pause
Cardiology following, discussed with Dr. Jimenez again as patient having multiple longer pauses. Dr. Jimenezreviewed and plan now for pacemaker Tuesday.
Not on beta-alana
TSH wnl
Xarelto restarted; per cardiology hold tuesday night
Hiatal Hernia / GERD
History of Schatzki ring
- IV PPI
- Hold on further bowel prep for now.
Per patient she was scheduled for EGD in addition to colonoscopy 04/18 outpatient. Will see how patient does with p.o. intake and if there is any issue then we will get GI for EGD at least while in the hospital. Seen by speech therapy and okay for
diet
- GI scope cancelled due to hospitalization - follow-up with GI as an outpatient.
Benign Hypertension
- Continue amlodipine with holding parameters.
- Would hold / stop chlorthalidone given electrolyte abnormalities.
DVT Prophylaxis: SCDs, Xarelto
Code Status: Full
Anticipated Discharge: > 48 hours
Subjective/Interval History
-
Date of Service: April 20, 2025
denies pain
Objective Data
-
Labs:
Laboratory Results
04/20/25
08:11
WBC 7.1
Hgb 13.6
Hct 39.0
Plt Count 230
Sodium 135
Potassium 3.8
Chloride 100
Carbon Dioxide 31 H
BUN 12
Creatinine 0.9
Glucose 86
Calcium 9.7
Vital Signs:
Vital Signs
Temp Pulse Resp BP Pulse Ox
98.1 F 42 16 155/56 98
04/20/25 11:15 04/20/25 11:57 04/20/25 11:57 04/20/25 11:57 04/20/25 11:57
I&O
04/19/25 04/20/25 04/21/25
06:59 06:59 06:59
Intake Total 880 / 880 580 / 580 480 / 480
Balance 880 / 880 580 / 580 480 / 480
--- NOTE | 2025-04-20 16:02 | PTCARENOTE ---
rec'd pt at 12 noon from 4th floor in stable condition. HR 30's asymptomatic. Pt complaining of left flank fullness relieved with belching or passing gas. This is consistent with symptoms experiencing prior to admission. Patient was able to eat
afternoon meal w/o issues.
[2025-04-20] MEDS: XARELTO 20 MG PO (18:37)
--- NOTE | 2025-04-20 20:55 | PTCARENOTE ---
Received pt @ change of shift. AAOx3, OOB in chair. HR 40s, other VSS-- Afib on monitor. Verbalizes anxiety about pacemaker on Tuesday. RN discussed anxieties with pt, reassuring and educating. Denies stomach pain, dizziness, lightheadedness @ this
time. Discussed plan of care, pt verbalizes understanding. Plan of care ongoing. Call nascimento within reach.
[2025-04-20] MEDS: CRESTOR 5 MG PO (22:19)
[2025-04-21] VITALS (7 sets, daily range): BP systolic 126–167; BP diastolic 44–81; BMI 25.8
--- NOTE | 2025-04-21 04:52 | PTCARENOTE ---
Pt reported sleeping well through night despite numerous 4 sec pauses. Denies lightheaded or dizziness @ this time. HR 30s-40s, other vitals stable as documented in worklist. Plan of care ongoing. Call nascimento within reach.
[2025-04-21 05:03] LABS: Hematocrit 37.0 % (37.0-47.0); Hemoglobin 13.1 g/dL (12.0-16.0); Mean Corp Hgb Conc. 35.4 g/dL (33.0-37.0); Mean Corpuscular Volume 90.9 fL (81.0-99.0); Nucleated Red Blood Cells % 0 %; Platelet Count 232 10^3/uL (130-400); Red Cell Dist. Width 13.5 % (11.5-14.5)
[2025-04-21 05:17] LABS: Blood Urea Nitrogen 14 mg/dl (7-17); Calcium 9.9 mg/dl (8.4-10.2); Carbon Dioxide 26 mmol/L (22-30); Chloride 104 mmol/L (98-107); Estimated Creatinine Clearance 47 ml/min; Glucose 89 mg/dl (70-99); Potassium 4.1 mmol/L (3.5-5.1); Sodium 135 mmol/L (135-145); eGFR > 60.00
[2025-04-21] MEDS: FLUSH (NSS) 2 FLUSH IV (08:20)
[2025-04-21] MEDS: NSS (PRESERVATIVE FREE) 10 ML IV (08:20)
[2025-04-21] MEDS: PROTONIX IV 40 MG IV (08:21)
[2025-04-21] MEDS: KCL 20 MEQ PO (08:22)
[2025-04-21] MEDS: NORVASC 5 MG PO (08:22)
--- NOTE | 2025-04-21 09:08 | W.PN.CD ---
Today's Communication / Plan
-
- N.p.o. after midnight
- Plan for pacemaker tomorrow
Impression / Plan
-
Bradycardia:
- A-fib with significant long pauses noted.
- Multiple pauses with the longest of 6 to 7 seconds.
- 6.8-second pause noted this morning
-HR 30's-50's on monitor-patient is significantly symptomatic with shortness of breath and dizziness.
-not on AV debby agents
-TSH WNL
- With significant long pauses, we will proceed with pacemaker implantation.
- Patient's A-fib is relatively new and will likely have a rhythm control strategy in future.
- Will plan for dual-chamber pacemaker tomorrow.
- N.p.o. after midnight for
Hyponatremia:
-management per primary team
Hypokalemia:
-being replaced; monitor
-diuretic held
Prolonged QTC:
-improved with K+ replacement
Permanent AFIB:
-on Xarelto as OP
-not on AV debby agents as noted
HTN:
-stable
-monitor on CCB
HLD: statin
Physical Exam
Vital Signs/Labs
Vital Signs
Temp Pulse Resp BP Pulse Ox
97.6 F 51 16 137/53 100
04/21/25 07:30 04/21/25 07:30 04/21/25 07:30 04/21/25 07:30 04/21/25 07:30
04/20/25 04/21/25 04/22/25
06:59 06:59 06:59
Actual Weight 61.83 kg 61.8 kg
04/21/25 04:16
04/21/25 04:16
Magnesium 2.2 mg/dl (1.6-2.3) 04/19/25 00:07
LAB Results
04/18/25 04/18/25 04/18/25
10:00 15:46 21:52
Troponin I 0.015 0.014 < 0.012
Physical Exam
Constitutional: No acute distress and Comfortable
EENT: Anicteric and Moist mucous membranes
Cardiovascular: JVD pressure is normal, Systolic murmur absent and Rhythm/rate is irregular
Respiratory: Respiratory effort normal, Lungs clear to auscul. and Crackles Absent
GI: Soft, Non tender and Normal bowel sounds
Neuro/Psych: Alert, Oriented and AO x 3
Data Reviewed
-
Date of Service: April 21, 2025
Medical Decision Making: Reviewed Test Results, Test Interpretation and Review of Case with other Provider
EKG: Tracing Personally Visualized and interpreted
Echo: Report Reviewed by me
X-Ray/CT/US/MRI/NUC/PET: Image Personally Visualized and interpreted
Labs: Labs Reviewed by me
Old Records: Reviewed
--- NOTE | 2025-04-21 12:42 | W.PN.HOSP.TC ---
Today's Communication/Plan
-
Monitor vitals
See plan
N.p.o. past midnight
Plan for pacemaker tomorrow
Hold Xarelto
Assessment / Plan
Assessment / Plan
General: no acute distress
HEENT: Anicteric, pink conjunctivae
Respiratory: Clear; No Wheezes, Rales or Rhonchi
Cardiac: S1/S2, Irregular Rhythm and Bradycardia
GI: No tenderness
Musculoskeletal: No Edema
Neuro: AO x 3
Acute Hyponatremia, Hypokalemia, Nausea / Diarrhea likely secondary to bowel prep for colonoscopy
Replete electrolytes aggressively, now improved
Prolonged QT
- Suspect diarrhea and electrolyte abnormalities are due to bowel prep / diarrhea + chlorthalidone, etc.
- Patient states that she was directed to take oral potassium as well - but she stopped this last week for unclear reasons.
dc further IVF
Electrolytes not improved
- Monitor on telemetry
Atrial fibrillation, unknown type
Now with bradycardia which could be secondary to electrolyte disturbances and vagal response
now with bradycardia with pause
Cardiology following, discussed with Dr. Jimenez again as patient having multiple longer pauses. Dr. Jimenez reviewed and plan now for pacemaker Tuesday. NPO past midnight. hold xarelto
Not on beta-alana
TSH wnl
Xarelto restarted; per cardiology hold tuesday night
Hiatal Hernia / GERD
History of Schatzki ring
- IV PPI
- Hold on further bowel prep for now.
Per patient she was scheduled for EGD in addition to colonoscopy 04/18 outpatient. Will see how patient does with p.o. intake and if there is any issue then we will get GI for EGD at least while in the hospital. Seen by speech therapy and okay for
diet
- GI scope cancelled due to hospitalization - follow-up with GI as an outpatient.
Benign Hypertension
- Continue amlodipine with holding parameters.
- Would hold / stop chlorthalidone given electrolyte abnormalities.
DVT Prophylaxis: SCDs, Xarelto now on hold for PPM
Code Status: Full
Anticipated Discharge: 24 - 48 hours
Subjective/Interval History
-
Date of Service: April 21, 2025
Denies pain
Objective Data
-
Labs:
Laboratory Results
04/21/25
04:16
WBC 8.0
Hgb 13.1
Hct 37.0
Plt Count 232
Sodium 135
Potassium 4.1
Chloride 104
Carbon Dioxide 26
BUN 14
Creatinine 0.8
Glucose 89
Calcium 9.9
Vital Signs:
Vital Signs
Temp Pulse Resp BP Pulse Ox
97.9 F 38 18 126/44 100
04/21/25 11:41 04/21/25 11:42 04/21/25 11:41 04/21/25 11:42 04/21/25 11:41
I&O
04/20/25 04/21/25 04/22/25
06:59 06:59 06:59
Intake Total 580 / 580 480 / 480
Balance 580 / 580 480 / 480
--- NOTE | 2025-04-21 13:29 | PTCARENOTE ---
The patient is aaox3. Afib with a slow ventricular response is noted on the monitor with HR as low as mid 20s while sleeping/resting. Her longest pause was 6.8 seconds this morning when she was sleeping. She has a vague complaint of LUQ 'fullness'
and gas. She is anxious about getting a pacemaker implanted tomorrow. I educated her on what to expect pre and post PPM placement to ease her nerves. She is also worried about sleeping tonight because of her low HRs. I let her know that we are
watching her heart rhythm continually.
[2025-04-21] MEDS: CRESTOR 5 MG PO (22:09)
[2025-04-22] VITALS (24 sets, daily range): BP systolic 119–157; BP diastolic 46–102; PULSE 45–70; BMI 26.0
--- NOTE | 2025-04-22 00:27 | PTCARENOTE ---
Received pt from day shift, anxious about pacemaker procedure in the AM. All questions about procedure and plan of care discussed with pt and pt verbalized understanding. Pt is A-fib on the monitor with pauses under 4 seconds, HR in the 40's to
50's, VSS Added 2 L O2 for low heart rate and added SCD's for DVT prevention, pt tolerating so far. Pt independent in the room, added latex bracelet to pt because has allergy to latex.
[2025-04-22 02:59] LABS: Hematocrit 35.0 % (37.0-47.0); Hemoglobin 12.5 g/dL (12.0-16.0); Mean Corp Hgb Conc. 35.7 g/dL (33.0-37.0); Mean Corpuscular Volume 88.4 fL (81.0-99.0); Nucleated Red Blood Cells % 0 %; Platelet Count 217 10^3/uL (130-400); Red Cell Dist. Width 13.4 % (11.5-14.5)
[2025-04-22 03:33] LABS: Blood Urea Nitrogen 15 mg/dl (7-17); Calcium 9.8 mg/dl (8.4-10.2); Carbon Dioxide 25 mmol/L (22-30); Chloride 103 mmol/L (98-107); Estimated Creatinine Clearance 47 ml/min; Glucose 94 mg/dl (70-99); Potassium 4.5 mmol/L (3.5-5.1); Sodium 136 mmol/L (135-145); eGFR > 60.00
--- NOTE | 2025-04-22 05:36 | PTCARENOTE ---
At approximately 4:10, pt had a 6.75 pause, pt was lying in bed, VSS, pt was asymptomatic, remains on 2L O2, Dr. Jimenez made aware, no new orders at this time. Pt remains NPO for planned PPM, call nascimento in reach.
[2025-04-22] MEDS: KCL 20 MEQ PO (07:49)
[2025-04-22] MEDS: PROTONIX IV 40 MG IV (07:49)
[2025-04-22] MEDS: NSS (PRESERVATIVE FREE) 10 ML IV (07:49)
--- NOTE | 2025-04-22 08:39 | PTCARENOTE ---
Patient received at change of shift resting in the bed. Afib on the monitor with pauses and a prolonged QT interval, herminio down to the 30s at times. The patient denies feeling lightheaded or dizzy. Reports some gas pain but denies N/V/D. SaO2 on 2L
NC 99%. Discussed plan of care including NPO status for PPM insertion today. Call nascimento within reach. Care ongoing.
[2025-04-22] MEDS: NORVASC 5 MG PO (09:24)
--- NOTE | 2025-04-22 10:11 | W.PN.CD ---
Today's Communication / Plan
-
- PPM implant today
Impression / Plan
-
Bradycardia:
- A-fib with significant long pauses noted.
- Multiple pauses with the longest of 6 to 7 seconds.
- 6.8-second pause noted this morning
-HR 30's-50's on monitor-patient is significantly symptomatic with shortness of breath and dizziness.
-not on AV debby agents
-TSH WNL
- With significant long pauses, we will proceed with pacemaker implantation.
- Patient's A-fib is relatively new and will likely have a rhythm control strategy in future.
- Will plan for dual-chamber pacemaker today
Hyponatremia:
-management per primary team
Hypokalemia:
-being replaced; monitor
-diuretic held
Prolonged QTC:
-improved with K+ replacement
Permanent AFIB:
-on Xarelto as OP
-not on AV debby agents as noted
HTN:
-stable
-monitor on CCB
HLD: statin
Physical Exam
Vital Signs/Labs
Vital Signs
Temp Pulse Resp BP Pulse Ox
98.1 F 33 14 119/46 99
04/22/25 07:22 04/22/25 09:00 04/22/25 07:22 04/22/25 09:24 04/22/25 08:00
04/21/25 04/22/25 04/23/25
06:59 06:59 06:59
Actual Weight 61.8 kg 62.3 kg
04/22/25 02:33
04/22/25 02:33
Magnesium 2.2 mg/dl (1.6-2.3) 04/19/25 00:07
Physical Exam
Constitutional: No acute distress and Comfortable
EENT: Anicteric and Moist mucous membranes
Cardiovascular: Pedal edema is absent, JVD pressure is normal and Rhythm/rate is irregular
Respiratory: Respiratory effort normal, Wheeze Absent and Crackles Absent
GI: Soft, Non tender and Normal bowel sounds
Neuro/Psych: Alert, Oriented and AO x 3
Data Reviewed
-
Date of Service: April 22, 2025
Medical Decision Making: Reviewed Test Results, Test Interpretation and Review of Case with other Provider
EKG: Tracing Personally Visualized and interpreted
Echo: Report Reviewed by me
Labs: Labs Reviewed by me
Old Records: Reviewed
--- NOTE | 2025-04-22 13:36 | W.PN.HOSP.TC ---
Today's Communication/Plan
-
Monitor vital signs
see plan
Plan for pacemaker today
Assessment / Plan
Assessment / Plan
General: no acute distress
HEENT: Anicteric, pink conjunctivae
Respiratory: Clear; No Wheezes, Rales or Rhonchi
Cardiac: S1/S2, Irregular Rhythm and Bradycardia
GI: No tenderness
Musculoskeletal: No Edema
Neuro: AO x 3
Acute Hyponatremia, Hypokalemia, Nausea / Diarrhea likely secondary to bowel prep for colonoscopy
Replete electrolytes aggressively, now improved
Prolonged QT
- Suspect diarrhea and electrolyte abnormalities are due to bowel prep / diarrhea + chlorthalidone, etc.
- Patient states that she was directed to take oral potassium as well - but she stopped this last week for unclear reasons.
dc further IVF
Electrolytes now improved
- Monitor on telemetry
Atrial fibrillation, unknown type
Now with bradycardia which could be secondary to electrolyte disturbances and vagal response
now with bradycardia with pause
Cardiology following, discussed with Dr. Jimenez again as patient having multiple longer pauses. Dr. Jimenez reviewed and plan now for pacemaker Today. hold xarelto. restart when ok with cardiology
Not on beta-alana
TSH wnl
Hiatal Hernia / GERD
History of Schatzki ring
- IV PPI
- Hold on further bowel prep for now.
Per patient she was scheduled for EGD in addition to colonoscopy 04/18 outpatient. Will see how patient does with p.o. intake and if there is any issue then we will get GI for EGD at least while in the hospital. Seen by speech therapy and okay for
diet
- GI scope cancelled due to hospitalization - follow-up with GI as an outpatient.
Benign Hypertension
- Continue amlodipine with holding parameters.
- Would hold / stop chlorthalidone given electrolyte abnormalities.
DVT Prophylaxis: SCDs, Xarelto now on hold for PPM
Code Status: Full
Anticipated Discharge: Within 24 hours
Subjective/Interval History
-
Date of Service: April 22, 2025
Denies nausea
Objective Data
-
Labs:
Laboratory Results
04/22/25
02:33
WBC 8.7
Hgb 12.5
Hct 35.0 L
Plt Count 217
Sodium 136
Potassium 4.5
Chloride 103
Carbon Dioxide 25
BUN 15
Creatinine 0.8
Glucose 94
Calcium 9.8
Vital Signs:
Vital Signs
Temp Pulse Resp BP Pulse Ox
99 F 41 18 126/66 98
04/22/25 10:52 04/22/25 12:00 04/22/25 10:52 04/22/25 11:52 04/22/25 10:52
I&O
04/21/25 04/22/25 04/23/25
06:59 06:59 06:59
Intake Total 480 / 480 1200 / 1200
Balance 480 / 480 1200 / 1200
--- NOTE | 2025-04-22 13:58 | CM ---
Reviewed chart. Met with Mrs. Thompson to review discharge plans. She states she is waiting to go for the pacemaker today. She states prior to admission she reside alone in a two story townhouse without any steps to enter. She states she has a
full flight of steps to get to bedroom/full bathroom. She states she has a powder room on the first floor. She states prior to admission she was independent with ambulation and adls. She states she does not have any DME in the home. She states
she has a prescription plan and uses [facility]. Medical work-up in progress. The discharge plan is to return home when medically stable.
--- NOTE | 2025-04-22 15:38 | ITS.CL.PACE ---
Senior Manufacturing Technician - Pacemaker Implant
Pacemaker Implant
Procedure Report:
Dual Chamber Pacemaker Placement:
Ms. Thompson is a very pleasant 74 yrs old woman with persistent AF on Xarelto with significant AV block and long pauses with bradycardia is recommended for PPM placement.
Indications: High degree AV block
Date of the Procedure: 04/22/2025
Pre-Operative Diagnosis: High degree AV block
Post-Operative Diagnosis: High degree AV block
Procedure Performed: DUAL CHAMBER PACEMAKER IMPLANTATION
Performing Physician:
Shabbir Jimenez MD
Anesthesia:
See anesthesia records
Pre-operative antibiotics:
Ancef 2 gram
Detailed Description of the Procedure:
The patient was identified using hospital identification and informed consent obtained for the procedure. The risks were explained including, but not limited to: Bleeding, infection, arrhythmia, stroke, vascular/cardiac/lung puncture, surgery,
pacemaker dependency/device malfunction. All questions were answered.
The patient was brought to the electrophysiology laboratory in stable condition in fasting state. Continuous electrocardiographic and hemodynamic monitoring was initiated.
The initial rhythm was atrial fibrillation with slow conduction and long AV pauses.
The procedure site was meticulously prepared with surgical scrub and allowed to dry with no pooling. Sterile draping was applied to cover the procedure site. The image intensifier was draped with sterile bag and positioned over the patient.
A surgical pause and time out was performed immediately prior to the procedure with review of her medical history, recent labs, allergies and medications with site of procedure identified and consent noted in the chart. Antibiotics pre operatively
given. All team members concurred.
The left infraclavicular region was prepped and draped in the usual sterile fashion. Local anesthesia was administered subcutaneously using 1% lidocaine / Bupivacaine. The left cephalic vein cutdown was performed with an incision at the
delto-pectoral groove, and vascular sheaths were introduced for lead access. These were advanced into the right ventricle and the right atrium.
The right ventricular lead was secured in position with an active fixation technique at the septal location.
The RA lead was attached in the right atrial appendage with passive fixation in the RAA.
There was excellent sensing, pacing, and impedance from the leads, with no diaphragmatic stimulation at 10 V output.�Bovie cautery, antibiotics, and fluoroscopy were used.
The sheaths were withdrawn, and the thresholds remained acceptable. The leads were secured in position at the venous entry site with 2-0 TiCron sutures. A pocket was fashioned contiguous to the incision. The electrode terminals were connected to the
pulse generator, which was placed into the pocket.
The generator was secured to the underlying fascia.
The wound was irrigated thoroughly with antibiotic solution.
The wound was closed in 3 layers using 2-0 V loc then two layers of 4-0 Biosyn sutures to the dermis. Steri-strips were applied externally and covered with Aquacel bandage.
Procedure End:
The procedure was tolerated well.
Estimated Blood loss:
5 cc
Specimens Removed:
No cultures and no specimens were obtained. No intraoperative pathology was identified.
Urine output:
None
Packs / Drains/ Tubes:
None
Instrument / Sponge Count Correct:
Yes
Complications of the Procedure:
None
Condition of Patient at Time of Transfer:
Hemodynamically stable with no neurological or vascular compromise.
Device information:�
Generator: [employer]; Model: [id number]; Serial #[id number]
Atrial Lead: [employer]; Model: 1944/52; Serial # [id number]
Measured data in the right atrium was sensing of 0.6mV of AF waves, impedance of 460 ohms.
RV Lead: [employer]; Model: MTZ0329/58; Serial # [id number]
Measured data in the RV lead was sensing of 4.5 mV, impedance of 640 ohms and threshold of 0.75 V at 0.4ms�
Angel parameter settings were DDDR (Switched to VVIR- 60 bpm)
Mode Switch: On
Summary:
Successful implantation of MRI compatible dual chamber [employer] pacemaker
Results/Recommendations:
-Please follow up CXR�
1. Please provide patient with adequate pain control�
Instructions to be given to patient:�
- Please follow up with [facility] at [address] [place] [address] ([phone]) to get your wound checked within 14 days of your discharge.
- Do not wet incision site until after it is evaluated at cardiology clinic. No soaking or bath until then. Showers or Sponge baths are OK.�Dab dry the area after a shower.
- Do not lift left elbow above shoulder, particularly with sudden jerking movements, for 1 month�
- Do not lift anything weighing more than 10 pounds with the left arm for 1 month�
- If you notice any fevers, shortness of breath, lightheadedness, chest pain, or worsening swelling in the wound site, please contact the arrhythmia clinic, contact your hand scudder, or present to the hospital for evaluation.�
Shabbir Jimenez MD
Electrophysiology
--- NOTE | 2025-04-22 16:11 | PTCARENOTE ---
Patient to EP lab for PPM insertion at approximately 1400, returned at approximately 1550. Vpaced on telemetry. Post op ECG completed. Left chest wall aquacell with pressure dressing C/D/I, no evidence of hematoma, surrounding area soft to
palpation, radial pulse palpable. LUE in immobilizer as ordered. Activity restrictions reviewed with patient. Call nascimento within reach. Care ongoing.
[2025-04-22] MEDS: ANCEF 5 IV (21:16)
[2025-04-22] MEDS: CRESTOR 5 MG PO (21:16)
--- NOTE | 2025-04-22 23:04 | PTCARENOTE ---
Assumed care on pt at 1900, aaox3, denies any complaints of pain or SOB, no dizziness or lightheadedness with ambulation, ortho VS completed and negative. LCW dressing CDI, pressure dressing intact and immobilizer on, surrounding area free of
swelling or bruising, soft to palpations. Vpaced on tele, HR 70's. bp stable. Pox 97% on RA. Pt anxious, needs constant education and reminders on activity restrictions. POC ongoing, call nascimento within reach.
[2025-04-23] VITALS (10 sets, daily range): BP systolic 128–150; BP diastolic 61–78; PULSE 70; BMI 25.8
[2025-04-23 03:48] LABS: Hematocrit 35.7 % (37.0-47.0); Hemoglobin 12.8 g/dL (12.0-16.0); Mean Corp Hgb Conc. 35.9 g/dL (33.0-37.0); Mean Corpuscular Volume 89.9 fL (81.0-99.0); Nucleated Red Blood Cells % 0 %; Platelet Count 217 10^3/uL (130-400); Red Cell Dist. Width 13.2 % (11.5-14.5)
[2025-04-23 04:16] LABS: Blood Urea Nitrogen 14 mg/dl (7-17); Calcium 10.1 mg/dl (8.4-10.2); Carbon Dioxide 24 mmol/L (22-30); Chloride 104 mmol/L (98-107); Estimated Creatinine Clearance 53 ml/min; Glucose 133 mg/dl (70-99); Potassium 4.5 mmol/L (3.5-5.1); Sodium 135 mmol/L (135-145); eGFR > 60.00
[2025-04-23] MEDS: ANCEF 5 IV (05:55)
[2025-04-23] MEDS: NSS (PRESERVATIVE FREE) 10 ML IV (07:49)
[2025-04-23] MEDS: PROTONIX IV 40 MG IV (07:49)
[2025-04-23] MEDS: NORVASC 5 MG PO (07:49)
[2025-04-23] MEDS: KCL 20 MEQ PO (07:49)
--- NOTE | 2025-04-23 09:15 | PTCARENOTE ---
Patient received at change of shift sitting at the edge of the bed. LUE immobilizer in place. Left chest wall pressure dressing in place, C/D/I, no edema noted, no ecchymosis noted. Radial pulse palpable. Discussed and reinforced activity
restrictions with patient. The patient denies pain at this time. Reports occasionally feeling lightheaded when she first gets up but so far has ambulated without difficulty. Vpaced on telemetry. SaO2 on RA 97%. Plan of care discussed. Call nascimento
within reach. Care ongoing.
--- NOTE | 2025-04-23 09:57 | W.CARD.DEVCH ---
Cardiac Device Check
-
Device: Pacemaker
Die Cast Patternmaker: [employer]
The patient's device was interrogated with assistance of the device livestock sales representative followed by a complete physician review. The device had normal function. No abnormalities seen.
--- NOTE | 2025-04-23 09:57 | W.PN.CD ---
Today's Communication / Plan
-
- Stable for discharge from cardiac stand point
- Follow up with incision check at [facility] then follow with Dr. Lin ([facility])
Impression / Plan
-
Bradycardia / high degree AV block:
- s/p dual chamber PPM - [employer] 04/22/25
- PPM interrogated. working normally.
- PRessure dressing removed. No bleeding.
- TSH WNL
Persistent AFIB:
-on Xarelto as OP
-with PPM in place, will start Coreg 12,5 mg BID and switch Chlorthalidone to HCTZ 25 mg QD
-May attempt a rhythm control in future. Atrial lead in place to pace and keep sinus rhythm now.
Dysphagia
- Upcoming EGD for food impaction
- Delayed due to bradycardia
- OK to proceed with care with left shoulder manipulation.
Hyponatremia:
-Resolved.
-management per primary team
Hypokalemia:
-replaced
- Switch chlorthalidone to HCTZ
Prolonged QTC:
-improved with K+ replacement
HTN:
-stable
-monitor on CCB
HLD: statin
Physical Exam
Vital Signs/Labs
Vital Signs
Temp Pulse Resp BP Pulse Ox
98.2 F 70 18 144/73 97
04/23/25 07:35 04/23/25 09:00 04/23/25 07:35 04/23/25 07:49 04/23/25 08:00
04/22/25 04/23/25 04/24/25
06:59 06:59 06:59
Actual Weight 62.3 kg 62 kg
04/23/25 02:47
04/23/25 02:47
Magnesium 2.2 mg/dl (1.6-2.3) 04/19/25 00:07
Physical Exam
Constitutional: No acute distress and Comfortable
EENT: Anicteric and Moist mucous membranes
Cardiovascular: Rhythm & rate is regular and Systolic murmur present
Respiratory: Respiratory effort normal, Lungs clear to auscul. and Wheeze Absent
GI: Soft, Non tender and Normal bowel sounds
Neuro/Psych: Alert, Oriented and AO x 3
Other: Cardiac Device Site
Data Reviewed
-
Date of Service: April 23, 2025
Medical Decision Making: Reviewed Test Results, Test Interpretation and Review of Case with other Provider
EKG: Tracing Personally Visualized and interpreted
Echo: Report Reviewed by me
Labs: Labs Reviewed by me
Old Records: Reviewed
--- NOTE | 2025-04-23 10:35 | CM ---
Reviewed chart. Met with Mrs. Thompson to review discharge plans. She states she is feeling well and maybe able to go home soon. She states she is planning on staying with her sister for a few days before returning to her home. She states he
sister resides in a one story home. Prior to admission she reside alone in a two story townhouse without any steps to enter. She has a full flight of steps to get to bedroom/full bathroom. She has a powder room on the first floor. Prior to admission
she was independent with ambulation and adls. She does not have any DME in the home. She has a prescription plan and uses [facility]. Medical work-up in progress. The discharge plan is go home with her sister when medically stable.
--- NOTE | 2025-04-23 13:33 | W.PN.HOSP.TC ---
Today's Communication/Plan
-
monitor vitals
see plan
start coreg
dc amlodipine
started HCTZ
monitor BP closely
restart xarelto
Assessment / Plan
Assessment / Plan
General: no acute distress
HEENT: Anicteric, pink conjunctivae
Respiratory: Clear; No Wheezes, Rales or Rhonchi
Cardiac: S1/S2, Irregular Rhythm, paced
GI: No tenderness
Musculoskeletal: No Edema
Neuro: AO x 3
Acute Hyponatremia, Hypokalemia, Nausea / Diarrhea likely secondary to bowel prep for colonoscopy
Replete electrolytes aggressively, now improved
Prolonged QT
- Suspect diarrhea and electrolyte abnormalities are due to bowel prep / diarrhea + chlorthalidone, etc.
dc further IVF
Electrolytes now improved
- Monitor on telemetry
Atrial fibrillation, unknown type
Now with bradycardia which could be secondary to electrolyte disturbances and vagal response
now with bradycardia with pause
Cardiology following, discussed with Dr. Jimenez again as patient having multiple longer pauses. Status post dual-chamber pacemaker 04/[address] Jimenez
restart xarelto
Discussed with cardiology, start Coreg 12.5 mg twice daily and discontinue amlodipine. Switch chlorthalidone to hydrochlorothiazide.
Not on beta-alana
TSH wnl
Hiatal Hernia / GERD
History of Schatzki ring
- IV PPI
- Hold on further bowel prep for now.
Per patient she was scheduled for EGD in addition to colonoscopy 04/18 outpatient. Will see how patient does with p.o. intake and if there is any issue then we will get GI for EGD at least while in the hospital. Seen by speech therapy and okay for
diet
- GI scope cancelled due to hospitalization - follow-up with GI as an outpatient.
Benign Hypertension
Discontinue amlodipine.Now started on HCTZ and Coreg
- Would stop chlorthalidone given electrolyte abnormalities.
DVT Prophylaxis: SCDs, Xarelto
Code Status: Full
Anticipated Discharge: Within 24 hours
Subjective/Interval History
-
Date of Service: April 23, 2025
Denies chest pain
Objective Data
-
Labs:
Laboratory Results
04/23/25
02:47
WBC 9.5
Hgb 12.8
Hct 35.7 L
Plt Count 217
Sodium 135
Potassium 4.5
Chloride 104
Carbon Dioxide 24
BUN 14
Creatinine 0.7
Glucose 133 H
Calcium 10.1
Vital Signs:
Vital Signs
Temp Pulse Resp BP Pulse Ox
97.6 F 70 18 131/69 98
04/23/25 11:16 04/23/25 11:16 04/23/25 11:16 04/23/25 11:15 04/23/25 11:16
I&O
04/22/25 04/23/25 04/24/25
06:59 06:59 06:59
Intake Total 1200 / 1200 240 / 240 480 / 480
Balance 1200 / 1200 240 / 240 480 / 480
[2025-04-23] MEDS: COREG 12.5 MG PO ×2 (14:34→20:03)
[2025-04-23] MEDS: XARELTO 20 MG PO (16:57)
[2025-04-23] MEDS: MIRALAX 17 GRAMS PO (18:00)
[2025-04-23] MEDS: FLUSH (NSS) 1 FLUSH IV (20:02)
--- NOTE | 2025-04-23 21:56 | PTCARENOTE ---
Rec'd pt at change of shift. PT AAO*3, VSS, and V paced on tele monitor. PT denies any pain or discomfort. L uppper chest wall CDI and L arm immobilized. Pt verbalizes understanding. Plan of care reviewed with pt and now resting with call nascimento
in reach. See MAR and flowchart for full pt care and assessment.
[2025-04-23] MEDS: CRESTOR 5 MG PO (23:02)
[2025-04-24 03:27] VITALS: BP 133/78
[2025-04-24 03:28] VITALS: BP 131/71; BP 133/78; BP 138/112; PULSE 70
[2025-04-24 03:54] LABS: Hematocrit 34.6 % (37.0-47.0); Hemoglobin 12.2 g/dL (12.0-16.0); Mean Corp Hgb Conc. 35.3 g/dL (33.0-37.0); Mean Corpuscular Volume 89.6 fL (81.0-99.0); Nucleated Red Blood Cells % 0 %; Platelet Count 205 10^3/uL (130-400); Red Cell Dist. Width 13.7 % (11.5-14.5)
[2025-04-24 04:05] LABS: Blood Urea Nitrogen 15 mg/dl (7-17); Calcium 9.6 mg/dl (8.4-10.2); Carbon Dioxide 27 mmol/L (22-30); Chloride 104 mmol/L (98-107); Estimated Creatinine Clearance 47 ml/min; Glucose 109 mg/dl (70-99); Potassium 4.5 mmol/L (3.5-5.1); Sodium 136 mmol/L (135-145); eGFR > 60.00
[2025-04-24 07:27] VITALS: BP 140/82
--- NOTE | 2025-04-24 08:07 | W.PN.CD ---
Today's Communication / Plan
-
- Stable for discharge
Impression / Plan
-
Bradycardia / high degree AV block:
- s/p dual chamber PPM - [employer] 04/22/25
- PPM interrogated. working normally. 100% V paced rhythm noted.
- Pressure dressing removed. No bleeding.
- TSH WNL
Persistent AFIB:
-on Xarelto as OP
-Coreg 12,5 mg BID started.
-Switch Chlorthalidone to HCTZ 25 mg QD
-May attempt a rhythm control in future. Atrial lead in place to pace and keep sinus rhythm now.
Dysphagia
- Upcoming EGD for food impaction
- Delayed due to bradycardia
- OK to proceed with care with left shoulder manipulation.
Hyponatremia:
-Resolved.
-management per primary team
Hypokalemia:
-replaced
- Switch chlorthalidone to HCTZ
Prolonged QTC:
-improved with K+ replacement
HTN:
-stable
-monitor on CCB
HLD: statin
Physical Exam
Vital Signs/Labs
Vital Signs
Temp Pulse Resp BP Pulse Ox
97.6 F 70 20 140/82 95
04/24/25 07:28 04/24/25 07:27 04/24/25 07:28 04/24/25 07:27 04/24/25 07:28
04/23/25 04/24/25 04/25/25
06:59 06:59 06:59
Actual Weight 62 kg
04/24/25 03:19
04/24/25 03:19
Magnesium 2.2 mg/dl (1.6-2.3) 04/19/25 00:07
Physical Exam
Constitutional: No acute distress and Comfortable
EENT: Anicteric and Moist mucous membranes
Cardiovascular: Rhythm & rate is regular, Pedal edema is absent and JVD pressure is normal
Respiratory: Respiratory effort normal, Lungs clear to auscul. and Wheeze Absent
GI: Soft, Non tender and Normal bowel sounds
Neuro/Psych: Alert, Oriented and AO x 3
Other: Cardiac Device Site
Data Reviewed
-
Date of Service: April 24, 2025
Medical Decision Making: Reviewed Test Results, Test Interpretation and Review of Case with other Provider
EKG: Tracing Personally Visualized and interpreted
Echo: Report Reviewed by me
X-Ray/CT/US/MRI/NUC/PET: Image Personally Visualized and interpreted
Labs: Labs Reviewed by me
Old Records: Reviewed
[2025-04-24] MEDS: ORETIC 25 MG PO (08:39)
[2025-04-24] MEDS: COREG 12.5 MG PO (08:39)
[2025-04-24] MEDS: PROTONIX IV 40 MG IV (08:39)
[2025-04-24] MEDS: NSS (PRESERVATIVE FREE) 10 ML IV (08:39)
[2025-04-24] MEDS: KCL 20 MEQ PO (08:39)
[2025-04-24] MEDS: MIRALAX PO ×2 (08:39→11:33)
--- NOTE | 2025-04-24 10:43 | PTCARENOTE ---
Pt is AOx3, no complaints of pain or discomfort. V paced on tele monitor, VSS. Independent OOB. Call nascimento within reach.
--- NOTE | 2025-04-24 11:12 | W.PN.HOSP.TC ---
Today's Communication/Plan
-
Monitor vitals
See plan
Continue with hydrochlorothiazide, Coreg
Discharge today
Time of discharge 38 minutes
Assessment / Plan
Assessment / Plan
General: no acute distress
HEENT: Anicteric, pink conjunctivae
Respiratory: Clear; No Wheezes, Rales or Rhonchi
Cardiac: S1/S2, Irregular Rhythm, paced
GI: No tenderness
Musculoskeletal: No Edema
Neuro: AO x 3
Acute Hyponatremia, Hypokalemia, Nausea / Diarrhea likely secondary to bowel prep for colonoscopy
Replete electrolytes aggressively, now improved
Prolonged QT
- Suspect diarrhea and electrolyte abnormalities are due to bowel prep / diarrhea + chlorthalidone, etc.
dc further IVF
Electrolytes now improved
- Monitor on telemetry
Atrial fibrillation, Persistent
Developed bradycardia with pause
Cardiology following, discussed with Dr. Jimenez again as patient having multiple longer pauses. Status post dual-chamber pacemaker 04/[address] Jimenez
restart xarelto
Discussed with cardiology, start Coreg 12.5 mg twice daily and discontinue amlodipine. Switch chlorthalidone to hydrochlorothiazide.Denies dizziness
TSH wnl
Hiatal Hernia / GERD
History of Schatzki ring
- IV PPI
- Hold on further bowel prep for now.
Per patient she was scheduled for EGD in addition to colonoscopy 04/18 outpatient. Will see how patient does with p.o. intake and if there is any issue then we will get GI for EGD at least while in the hospital. Seen by speech therapy and okay for
diet
- GI scope cancelled due to hospitalization - follow-up with GI as an outpatient.
Benign Hypertension
Discontinue amlodipine.Now started on HCTZ and Coreg
- Would stop chlorthalidone given electrolyte abnormalities.
DVT Prophylaxis: SCDs, Xarelto
Code Status: Full
Anticipated Discharge: Today
Subjective/Interval History
-
Date of Service: April 24, 2025
Denies dizziness
Objective Data
-
Labs:
Laboratory Results
04/24/25
03:19
WBC 13.3 H
Hgb 12.2
Hct 34.6 L
Plt Count 205
Sodium 136
Potassium 4.5
Chloride 104
Carbon Dioxide 27
BUN 15
Creatinine 0.8
Glucose 109 H
Calcium 9.6
Vital Signs:
Vital Signs
Temp Pulse Resp BP Pulse Ox
97.6 F 86 20 140/82 95
04/24/25 07:28 04/24/25 08:39 04/24/25 07:28 04/24/25 08:39 04/24/25 07:28
I&O
04/23/25 04/24/25 04/25/25
06:59 06:59 06:59
Intake Total 240 / 240 1440 / 1440
Balance 240 / 240 1440 / 1440
--- NOTE | 2025-04-24 11:18 | CM ---
Reviewed chart. Met with Mrs. Thompson to review discharge plans. She states she is feeling well and maybe able to go home soon. . She is planning on staying with her sister for a few days before returning to her home. She states he sister resides
in a one story home. Prior to admission she reside alone in a two story townhouse without any steps to enter. She has a full flight of steps to get to bedroom/full bathroom. She has a powder room on the first floor. Prior to admission she was
independent with ambulation and adls. She does not have any DME in the home. She has a prescription plan and uses [facility]. Medical work-up in progress. The discharge plan is go home with her sister when medically stable.
--- NOTE | 2025-04-24 11:18 | W.DCSUMMARY ---
Discharge Summary
Discharge Data
Date of Admission: 04/18/25
Date of Discharge: 04/24/25
-
Pending Results: No
Hospital Course
74-year-old female with past medical history of atrial fibrillation, hiatal hernia, GERD, history of Schatzki's ring, benign hypertension, dysphagia came to the hospital with acute hyponatremia, hypokalemia, nausea and diarrhea secondary to bowel
prep for colonoscopy. Patient electrolytes were aggressively repleted on this admission. While patient was in the hospital she also had bradycardia with pauses for which she was seen by cardiology. Given her degree of bradycardia and pauses
pacemaker was recommended. Patient then underwent dual-chamber pacemaker placement on 04/22. Her amlodipine and chlorthalidone was discontinued on this hospitalization and instead she was started on Coreg and hydrochlorothiazide. Patient was also
able to tolerate diet prior to discharge. She was instructed to follow-up closely with GI for her issues with dysphagia. Once her symptoms continue to improve, she was discharged with instructions to follow-up with all her physicians outpatient.
Discharge Plan
-
Patient Disposition: Home (Routine Discharge)
Discharge Diagnosis/Procedures: Bradycardia with pauses status post Pacemaker implant
Atrial fibrillation
Acute hyponatremia, hypokalemia
Condition: Fair
Diet: Other diet
Additional Diets: Bite-size
Driving Restrictions: No driving for 1 week
Activity Restrictions/Additional Instructions:
Follow-up with your outpatient creative director
Stand Alone Forms: DC Inst - Implanted Device
Referrals:
[facility] [Provider Group] - 04/29/25 2:00 pm
Referral Note: Post device incision check with SHADIA Gage
Shabbir Jimenez MD [Active, Cardiology]
Dena Peoples MD [Family Provider, Family Practice] - in less than 1 week
Joo Barrera,Mackenzie Dos Santos MD [Non-Admitting Privileges, Cardiology] - in two to four weeks
Prescriptions:
New
carvedilol 12.5 mg Tablet
12.5 mg PO BID Qty: 60 0RF
hydrochlorothiazide 25 mg Tablet
25 mg PO DAILY Qty: 30 0RF
sennosides [Senna Lax] 8.6 mg tablet
8.6 mg PO DAILY PRN (Reason: Constipation) Qty: 1 0RF
pantoprazole [Protonix] 40 mg tablet,delayed release (DR/EC)
40 mg PO DAILY Qty: 30 0RF
Continued
rosuvastatin 5 mg tablet
5 mg PO HS
Xarelto 20 mg tablet
20 mg PO QPM
potassium chloride 10 mEq Packet
10 meq PO DAILY
Discontinued
chlorthalidone 25 mg tablet
25 mg PO DAILY
amlodipine 5 mg tablet
5 mg PO DAILY
Discharge Orders:
Discharge Patient (As Directed); Ordered 04/24/25
Ordered By: Polo Begum
Care Plan Goals
Care Plan Goals:
Problem: Readiness for enhanced knowledge related to diagnosis and treatment plan
Goal: Understand your diagnosis and treatment plan needs, including medications if applicable.
Instructions: Know your diagnosis, underlying causes and treatment plan options, including medications if applicable. Consult with your health care team to learn about your diagnosis and treatment plan, including medications if applicable.
Discharge Date and Time
Discharge Date/Time: 04/24/25 15:45
Print Language: URDU
[2025-04-24 11:19] VITALS: BP 142/82
[2025-04-24] MEDS: SENOKOT-S 1 TABLET PO (11:33)
[2025-04-24 15:16] VITALS: BP 137/79
== END 2025-04-24 15:45 | disposition home or self-care (01) | DRG 982 ==
LOC: IVU 07:23
PROVIDERS: Internal Medicine Cardiovascular Disease; Nurse Practitioner Gerontology; Physician Assistant; ADMITTING PHYSICIAN Hospitalist; ATTENDING PHYSICIAN Internal Medicine; CONSULT PHYSICIAN Internal Medicine Cardiovascular Disease; EMERGENCY PHYSICIAN Emergency Medicine; FAMILY PHYSICIAN Family Medicine
PROC: 0JH606Z Insertion of Pacemaker, Dual Chamber into Chest Subcutaneous Tissue and Fascia, Open Approach (ICD-10-PCS; 2025-04-22)
PROC: 02HK3JZ Insertion of Pacemaker Lead into Right Ventricle, Percutaneous Approach (ICD-10-PCS; 2025-04-22)
PROC: 02H63JZ Insertion of Pacemaker Lead into Right Atrium, Percutaneous Approach (ICD-10-PCS; 2025-04-22)
DX: E87.1 Hypo-osmolality and hyponatremia (principal); I48.19 Other persistent atrial fibrillation; I10 Essential (primary) hypertension; K44.9 Diaphragmatic hernia without obstruction or gangrene; F41.9 Anxiety disorder, unspecified; E87.6 Hypokalemia; I44.30 Unspecified atrioventricular block; E83.42 Hypomagnesemia; K22.2 Esophageal obstruction; K21.9 Gastro-esophageal reflux disease without esophagitis; E78.00 Pure hypercholesterolemia, unspecified; R00.1 Bradycardia, unspecified; Z60.2 Problems related to living alone; Z79.899 Other long term (current) drug therapy; Z91.048 Other nonmedicinal substance allergy status; Z79.01 Long term (current) use of anticoagulants
CPT/HCPCS: 33208; 71045; 80048; 80053; 83735; 83930; 83935; 84295; 84300; 84443; 84484; 85025; 85027; 92610; 93005; 93306; 96361; 96374; 96375; 99285; C1785; C1898